=== PATIENT | male | born 1970 | race Caucasian/White ===

== ENCOUNTER 2020-11-27 00:08 | Emergency (ER) | payer SELFPAY | END 2020-11-27 01:18 | disposition left against medical advice (07) | LOC: ER1 00:08 | DX: Z53.21 Procedure and treatment not carried out due to patient leaving prior to being seen by health care provider (principal) ==

== ENCOUNTER 2021-10-02 03:31 | Emergency (ER) | payer BC ==
[2021-10-02 04:31] LABS: HEMOGLOBIN 15.7 gm/dl (14.0-17.5); RED BLOOD COUNT 5.5 M/UL (4.20-5.50)
[2021-10-02 04:36] LABS: BUN/CREATININE RATIO 17 (0-10)
[2021-10-02] MEDS ORDERED: LOPERAMIDE2 M1 PO (07:01)
[2021-10-02] MEDS ORDERED: IBU600 MG PO (07:03)
== END 2021-10-02 07:13 | disposition home or self-care (01) ==
LOC: ER1 03:31
PROVIDERS: Student in an Organized Health Care Education/Training Program
DX: R10.9 Unspecified abdominal pain (principal); R19.7 Diarrhea, unspecified; R74.01 Elevation of levels of liver transaminase levels
CPT/HCPCS: 80053; 81001; 83690; 85025; 93005; 99284; Q9967